=== PATIENT | female | born 1945 | race Caucasian/White ===

== ENCOUNTER 2018-01-01 22:52 | Emergency (ER) | payer MEDICARE, MEDICAID ==
[~2018-01-01] VITALS: Ht 157.5 cm; Wt 66.0 kg
[~2018-01-01 22:52] MED LIST: ATOR40TA PO; DIGO250T PO; FURO40TA6 PO; LEVO25TA4 PO; MECL12.52 PO; POTA10CA PO; SOTA120T26 PO; WARF5TAB PO
[2018-01-01] MEDS ORDERED: SODIUM CHLORIDE 0.9% 1,000ML IVBOLUS ONE (23:00)
[2018-01-01 23:27] LABS: BASOPHILS # (AUTO) 0.02 x10^3/uL (0-0.1); BASOPHILS % (AUTO) 0 % (0-1); EOSINOPHILS # (AUTO) 0.06 x10^3/uL (0-0.4); EOSINOPHILS % (AUTO) 1 % (1-7); LYMPHOCYTES # (AUTO) 1.02 x10^3/uL (1-3.4); LYMPHOCYTES % (AUTO) 22 % (22-44); MD NO; MEAN CORPUSCULAR HEMOGLOBIN 27.9 pg (27.0-34.8); MEAN CORPUSCULAR HGB CONC 32.8 g/dL (32.4-35.8); MEAN CORPUSCULAR VOLUME 85.1 fL (80-100); MEAN PLATELET VOLUME 7.9 fL (7.4-10.4); MONOCYTES % (AUTO) 9 % (2-9); NEUTROPHILS # (AUTO) 3.14 x10^3/uL (1.8-6.8); NEUTROPHILS % (AUTO) 68 % (42-75); PLATELET COUNT 190 x10^3/uL (130-400); RED BLOOD COUNT 4.07 x10^6/uL (3.82-5.3); RED CELL DISTRIBUTION WIDTH 15.4 % (9.6-15.2)
[2018-01-01] MEDS ORDERED: INSULIN REGULAR 100 UNITS/ML, 3ML VIAL SQ-INSULIN ONE (23:30)
[2018-01-01 23:33] LABS: ALBUMIN 3.6 g/dL (3.4-5.0); ANION GAP 3 mmol/L (5-15); CALCIUM 8.6 mg/dL (8.5-10.1); CHLORIDE 105 mmol/L (98-107); CREATININE 1.07 mg/dL (0.55-1.02)
[2018-01-01] MEDS ORDERED: INSULIN REGULAR 100 UNITS/ML, 3ML VIAL ONE (23:43)
[2018-01-02 00:05] LABS: INTERNATIONAL NORMALIZED RATIO 1.16 (0.93-1.1)
[2018-01-02] MEDS ORDERED: WARFARIN 10 MG TABLET PO-COUM STA (00:28)
[2018-01-02] MEDS ORDERED: ENOXAPARIN 60 MG/0.6 ML SQ ONE (00:30)
[2018-01-02] MEDS ORDERED: ENOXAPARIN 60 MG/0.6 ML ONE (00:39)
[2018-01-02 00:50] VITALS: BP 144/72
== END 2018-01-02 01:12 | disposition home or self-care (01) ==
LOC: ED 01-02 00:30
DX: E11.65 Type 2 diabetes mellitus with hyperglycemia (principal); E86.0 Dehydration; Z72.9 Problem related to lifestyle, unspecified; I48.91 Unspecified atrial fibrillation; Z79.01 Long term (current) use of anticoagulants; Z79.4 Long term (current) use of insulin; Z95.0 Presence of cardiac pacemaker; Z95.2 Presence of prosthetic heart valve
CPT/HCPCS: 36415; 80048; 82040; 82962; 85025; 85610; 93005; 96360; 96361; 96372; 99285; J1650; J7030

== ENCOUNTER 2018-04-05 09:33 | Inpatient (IN) | payer MEDICARE, MEDICAID ==
[~2018-04-05] VITALS: Ht 157.5 cm; Wt 67.3 kg
[2018-04-05] MEDS ORDERED: SODIUM CHLORIDE 0.9% 1,000ML IVBOLUS ONE (10:00)
[2018-04-05 10:09] LABS: BASOPHILS # (AUTO) 0.01 x10^3/uL (0-0.1); BASOPHILS % (AUTO) 0 % (0-1); EOSINOPHILS # (AUTO) 0.03 x10^3/uL (0-0.4); EOSINOPHILS % (AUTO) 1 % (1-7); LYMPHOCYTES # (AUTO) 0.98 x10^3/uL (1-3.4); LYMPHOCYTES % (AUTO) 26 % (22-44); MD NO; MEAN CORPUSCULAR HEMOGLOBIN 27.6 pg (27.0-34.8); MEAN CORPUSCULAR HGB CONC 32.7 g/dL (32.4-35.8); MEAN CORPUSCULAR VOLUME 84.4 fL (80-100); MEAN PLATELET VOLUME 7.7 fL (7.4-10.4); MONOCYTES # (AUTO) 0.23 x10^3/uL (0.2-0.8); MONOCYTES % (AUTO) 6 % (2-9); NEUTROPHILS % (AUTO) 68 % (42-75); PLATELET COUNT 217 x10^3/uL (130-400); RED BLOOD COUNT 4.65 x10^6/uL (3.82-5.3); RED CELL DISTRIBUTION WIDTH 15.2 % (9.6-15.2)
[2018-04-05 10:21] LABS: ALBUMIN 3.7 g/dL (3.4-5.0); ANION GAP 4 mmol/L (5-15); CALCIUM 8.7 mg/dL (8.5-10.1); CHLORIDE 98 mmol/L (98-107); CREATININE 1.09 mg/dL (0.55-1.02)
[2018-04-05 10:25] LABS: MICROSCOPIC NOT IND
[2018-04-05 10:35] LABS: CULTURE INDICATED? NO
[2018-04-05] MEDS ORDERED: ADENOSINE 6 MG/2 ML ONE (10:52)
[2018-04-05] MEDS ORDERED: VERAPAMIL 2.5 MG/ML, 2ML ONE (11:07)
[2018-04-05 11:30] LABS: ACETONE, SERUM Negative (Negative)
[2018-04-05] MEDS ORDERED: INSULIN REGULAR 100 UNITS/ML, 3ML VIAL IVPush ONE (11:30)
[2018-04-05] MEDS ORDERED: ADENOSINE 6 MG/2 ML IVPush ONE (11:30)
[2018-04-05] MEDS ORDERED: VERAPAMIL 2.5 MG/ML, 2ML IVPush ONE (11:30)
[2018-04-05] MEDS ORDERED: DEXTROSE 50%, 50ML SYRINGE IVPush PRN (12:30)
[2018-04-05] MEDS ORDERED: FUROSEMIDE 40 MG/4 ML IV SCH (12:30)
[2018-04-05] MEDS ORDERED: NITROGLYCERIN 0.4 MG BOTTLE (25 TABS) SL PRN (12:30)
[2018-04-05] MEDS ORDERED: GLUCAGON 1 MG IM PRN (12:30)
[2018-04-05] MEDS ORDERED: DEXTROSE 4 GM TAB.CHEW PO PRN (12:30)
[2018-04-05] MEDS ORDERED: ONDANSETRON 2MG/ML, 2ML IVPush PRN (12:30)
[2018-04-05 12:36] LABS: FREE T4 (FREE THYROXINE) 1.4 ng/dL (0.76-1.46)
[2018-04-05 12:39] VITALS: BP 110/73
[2018-04-05 12:51] LABS: HEMOGLOBIN A1C 14.6 % (4.2-6.3)
[2018-04-05 12:54] LABS: INTERNATIONAL NORMALIZED RATIO 1.08 (0.93-1.1); PROTHROMBIN TIME 11.1 Seconds (9.6-11.5)
[2018-04-05] MEDS ORDERED: INSULIN GLARGINE 100 UNITS/ML, PEN SQ-INSULIN ONE (13:00)
[2018-04-05] MEDS: INSULIN LISPRO 100 UNITS/ML, PEN SQ-INSULIN SCH ×3 (13:34→21:07)
[2018-04-05] MEDS ORDERED: ASPIRIN 325 MG TABLET PO ONE (14:30)
[2018-04-05 14:37] LABS: CHOL/HDL RATIO 3.2; LDL/HDL RATIO 1.6 (0.5-3.0)
[2018-04-05 17:42] VITALS: BP 126/75
[2018-04-05] MEDS: DILTIAZEM 30 MG TABLET PO SCH (17:49)
[2018-04-05] MEDS ORDERED: WARFARIN 3 MG TABLET PO-COUM SCH (18:00)
[2018-04-05 19:54] VITALS: BP 90/55
[2018-04-05] MEDS ORDERED: ACETAMINOPHEN 325 MG TABLET PO ONE (20:30)
[2018-04-05] MEDS ORDERED: SOTALOL 120MG TABLET PO SCH (21:00)
[2018-04-05] MEDS: DIGOXIN 0.25 MG TABLET PO SCH (21:06)
[2018-04-05] MEDS: SODIUM CHLORIDE FLUSH 10ML SYR IVF SCH (21:06)
[2018-04-05] MEDS: ATORVASTATIN 20 MG TABLET PO SCH (21:06)
[2018-04-05 21:09] VITALS: BP 97/65
[2018-04-06] VITALS (7 sets, daily range): BP systolic 90–137; BP diastolic 49–79
[2018-04-06] MEDS: DILTIAZEM 30 MG TABLET PO SCH ×2 (00:37→06:17)
[2018-04-06 01:12] LABS: BASOPHILS # (AUTO) 0.03 x10^3/uL (0-0.1); BASOPHILS % (AUTO) 1 % (0-1); EOSINOPHILS # (AUTO) 0.11 x10^3/uL (0-0.4); EOSINOPHILS % (AUTO) 2 % (1-7); LYMPHOCYTES # (AUTO) 2.63 x10^3/uL (1-3.4); LYMPHOCYTES % (AUTO) 40 % (22-44); MD NO; MEAN CORPUSCULAR HEMOGLOBIN 27.9 pg (27.0-34.8); MEAN CORPUSCULAR HGB CONC 32.9 g/dL (32.4-35.8); MEAN CORPUSCULAR VOLUME 84.7 fL (80-100); MEAN PLATELET VOLUME 7.5 fL (7.4-10.4); MONOCYTES # (AUTO) 0.42 x10^3/uL (0.2-0.8); MONOCYTES % (AUTO) 6 % (2-9); NEUTROPHILS # (AUTO) 3.38 x10^3/uL (1.8-6.8); NEUTROPHILS % (AUTO) 51 % (42-75); PLATELET COUNT 251 x10^3/uL (130-400); RED BLOOD COUNT 4.02 x10^6/uL (3.82-5.3); RED CELL DISTRIBUTION WIDTH 15.9 % (9.6-15.2)
[2018-04-06 01:16] LABS: ALANINE AMINOTRANSFERASE 91 U/L (12-78); ANION GAP 8 mmol/L (5-15); CALCIUM 8.4 mg/dL (8.5-10.1); CHLORIDE 111 mmol/L (98-107); CHOLESTEROL, TOTAL 121 mg/dL (140-239); CREATININE 0.96 mg/dL (0.55-1.02)
[2018-04-06 01:27] LABS: ALKALINE PHOSPHATASE 196 U/L (45-117); BILIRUBIN,TOTAL 0.3 mg/dL (0.2-1.0); CHOL/HDL RATIO 2.3; HDL CHOL % 43 % (28-40); HDL CHOLESTEROL (DIRECT) 52 mg/dL (40-60); LDL CHOLESTEROL,CALCULATED 58 mg/dL (54-169); LDL/HDL RATIO 1.1 (0.5-3.0); TOTAL PROTEIN 6.6 g/dL (6.4-8.2); TRIGLYCERIDES 53 mg/dL (50-200); VLDL CHOLESTEROL 11 mg/dL (0-25)
[2018-04-06] MEDS: LEVOTHYROXINE 25 MCG TABLET PO SCH (06:17)
[2018-04-06] MEDS ORDERED: SOTALOL 120MG TABLET PO SCH (09:00)
[2018-04-06] MEDS ORDERED: DILTIAZEM 120 MG CAP.ER.24H PO SCH (09:00)
[2018-04-06] MEDS ORDERED: INSULIN GLARGINE 100 UNITS/ML, PEN SQ-INSULIN SCH (09:00)
[2018-04-06 09:20] LABS: TROPONIN I < 0.015 ng/mL (0.000-0.045)
[2018-04-06 10:00] LABS: INTERNATIONAL NORMALIZED RATIO 1.11 (0.93-1.1); PROTHROMBIN TIME 11.4 Seconds (9.6-11.5)
[2018-04-06] MEDS: MECLIZINE 12.5 MG TABLET PO SCH (10:15)
[2018-04-06] MEDS: INSULIN LISPRO 100 UNITS/ML, PEN SQ-INSULIN SCH ×4 (10:15→21:23)
[2018-04-06] MEDS: FUROSEMIDE 20 MG TABLET PO SCH ×2 (10:15→16:56)
[2018-04-06] MEDS: SODIUM CHLORIDE FLUSH 10ML SYR IVF SCH ×2 (10:15→21:21)
[2018-04-06] MEDS: SOTALOL 120MG TABLET PO SCH ×2 (10:16→16:50)
[2018-04-06] MEDS ORDERED: POTASSIUM CHLORIDE 20 MEQ TAB.ER.PRT PO ONE (10:30)
[2018-04-06] MEDS: ENOXAPARIN 60 MG/0.6 ML SQ SCH (14:02)
[2018-04-06] MEDS ORDERED: FUROSEMIDE 20 MG TABLET PO SCH (17:00)
[2018-04-06] MEDS ORDERED: WARFARIN 7.5 MG TABLET PO-COUM ONE (18:00)
[2018-04-06] MEDS: DIGOXIN 0.25 MG TABLET PO SCH (21:21)
[2018-04-06] MEDS: ATORVASTATIN 20 MG TABLET PO SCH (21:21)
[2018-04-06] MEDS: INSULIN GLARGINE 100 UNITS/ML, PEN SQ-INSULIN SCH (21:23)
[2018-04-06] MEDS ORDERED: ACETAMINOPHEN 325 MG TABLET PO ONE (23:30)
[2018-04-07] MEDS: INSULIN GLARGINE 100 UNITS/ML, PEN SQ-INSULIN SCH (00:06)
[2018-04-07 01:58] VITALS: BP 107/72
[2018-04-07] MEDS: ENOXAPARIN 60 MG/0.6 ML SQ SCH ×2 (02:06→15:37)
[2018-04-07 05:33] LABS: INTERNATIONAL NORMALIZED RATIO 1.31 (0.93-1.1); PROTHROMBIN TIME 13.4 Seconds (9.6-11.5)
[2018-04-07 05:34] LABS: ALBUMIN 2.8 g/dL (3.4-5.0); ANION GAP 6 mmol/L (5-15); CALCIUM 8.2 mg/dL (8.5-10.1); CHLORIDE 108 mmol/L (98-107)
[2018-04-07 05:38] LABS: ALANINE AMINOTRANSFERASE 64 U/L (12-78); ALKALINE PHOSPHATASE 177 U/L (45-117); BILIRUBIN,TOTAL 0.4 mg/dL (0.2-1.0); CREATININE 0.91 mg/dL (0.55-1.02); TOTAL PROTEIN 6.2 g/dL (6.4-8.2)
[2018-04-07 05:55] VITALS: BP 103/71
[2018-04-07] MEDS: LEVOTHYROXINE 25 MCG TABLET PO SCH (06:05)
[2018-04-07] MEDS: SOTALOL 120MG TABLET PO SCH (06:05)
[2018-04-07 07:31] VITALS: BP 104/70
[2018-04-07 07:54] LABS: MEAN CORPUSCULAR HEMOGLOBIN 27.2 pg (27.0-34.8); MEAN CORPUSCULAR HGB CONC 32.1 g/dL (32.4-35.8); MEAN CORPUSCULAR VOLUME 84.8 fL (80-100); RED BLOOD COUNT 3.81 x10^6/uL (3.82-5.3); RED CELL DISTRIBUTION WIDTH 15.9 % (9.6-15.2)
[2018-04-07 08:57] LABS: MEAN PLATELET VOLUME 8.1 fL (7.4-10.4); PLATELET COUNT 180 x10^3/uL (130-400)
[2018-04-07 09:00] LABS: BASOPHILS # (AUTO) 0.01 x10^3/uL (0-0.1); BASOPHILS % (AUTO) 0 % (0-1); EOSINOPHILS # (AUTO) 0.03 x10^3/uL (0-0.4); EOSINOPHILS % (AUTO) 1 % (1-7); LYMPHOCYTES % (AUTO) 38 % (22-44); MD SCAN; MONOCYTES # (AUTO) 0.21 x10^3/uL (0.2-0.8); MONOCYTES % (AUTO) 7 % (2-9); NEUTROPHILS # (AUTO) 1.54 x10^3/uL (1.8-6.8); NEUTROPHILS % (AUTO) 53 % (42-75)
[2018-04-07] MEDS ORDERED: LISINOPRIL 5 MG TABLET PO SCH (09:00)
[2018-04-07] MEDS ORDERED: DILTIAZEM 90 MG CAP.ER.12H PO SCH (09:00)
[2018-04-07] MEDS: MECLIZINE 12.5 MG TABLET PO SCH (09:40)
[2018-04-07] MEDS: SODIUM CHLORIDE FLUSH 10ML SYR IVF SCH (09:40)
[2018-04-07] MEDS: FUROSEMIDE 20 MG TABLET PO SCH (09:40)
[2018-04-07] MEDS ORDERED: INSULIN LISPRO 100 UNITS/ML, PEN SQ-INSULIN SCH (11:00)
[2018-04-07] MEDS ORDERED: INSU100I13 SQ-INSULIN (14:28)
[2018-04-07] MEDS ORDERED: FURO20TA3 PO (14:28)
[2018-04-07] MEDS ORDERED: WARF7.5T PO-COUM (14:28)
[2018-04-07] MEDS ORDERED: ENOX60SY4 SQ (14:28)
[2018-04-07] MEDS ORDERED: SOTA120T14 PO (14:28)
[2018-04-07 15:32] VITALS: BP 127/76
[2018-04-07] MEDS ORDERED: WARFARIN 7.5 MG TABLET PO-COUM ONE (18:00)
== END 2018-04-07 16:20 | disposition home or self-care (01) | DRG 291 ==
LOC: ED 11:23 → EDIP 11:24 → ED 11:41 → 5SO 12:21
PROVIDERS: ADMIT Internal Medicine; ATTEND Internal Medicine
DX: I13.0 Hypertensive heart and chronic kidney disease with heart failure and stage 1 through stage 4 chronic kidney disease, or unspecified chronic kidney disease (principal); I50.43 Acute on chronic combined systolic (congestive) and diastolic (congestive) heart failure; I48.92 Unspecified atrial flutter; E87.1 Hypo-osmolality and hyponatremia; I47.1 Supraventricular tachycardia; D68.59 Other primary thrombophilia; I48.0 Paroxysmal atrial fibrillation; M70.72 Other bursitis of hip, left hip; M70.71 Other bursitis of hip, right hip; E11.22 Type 2 diabetes mellitus with diabetic chronic kidney disease; E03.9 Hypothyroidism, unspecified; E11.649 Type 2 diabetes mellitus with hypoglycemia without coma; I42.9 Cardiomyopathy, unspecified; K21.9 Gastro-esophageal reflux disease without esophagitis; N18.3 Chronic kidney disease, stage 3 (moderate); Z59.0 Homelessness; Z79.01 Long term (current) use of anticoagulants; Z79.4 Long term (current) use of insulin; Z86.73 Personal history of transient ischemic attack (TIA), and cerebral infarction without residual deficits; Z87.891 Personal history of nicotine dependence; Z90.710 Acquired absence of both cervix and uterus; Z91.14 Patient's other noncompliance with medication regimen; Z95.0 Presence of cardiac pacemaker; Z95.2 Presence of prosthetic heart valve; Z88.6 Allergy status to analgesic agent; Z88.0 Allergy status to penicillin
CPT/HCPCS: 36415; 71045; 80048; 80053; 80061; 80162; 81003; 82010; 82040; 82947; 82962; 83036; 83735; 83880; 84439; 84443; 84484; 85025; 85610; 85730; 93005; 93306; 96361; 96374; 96375; J0153; J1650; J1940; J1815; J7030

== ENCOUNTER 2018-07-08 09:03 | Emergency (ER) | payer MEDICARE, MEDICAID ==
[~2018-07-08] VITALS: Ht 157.5 cm; Wt 67.0 kg
[~2018-07-08 09:03] MED LIST changes: +ENOX60SY4 SQ; +FURO20TA3 PO; +INSU100I13 SQ-INSULIN; +SOTA120T14 PO; +WARF7.5T PO-COUM
[2018-07-08] MEDS ORDERED: SODIUM CHLORIDE 0.9% 1,000 ML IV ONE (09:25)
[2018-07-08] MEDS ORDERED: HYDROcodone/APAP 5/325 TABLET PO ONE (09:30)
[2018-07-08] MEDS ORDERED: SODIUM CHLORIDE 0.9% 1,000ML IVBOLUS ONE (09:30)
[2018-07-08 09:56] LABS: BASOPHILS # (AUTO) 0.01 x10^3/uL (0-0.1); BASOPHILS % (AUTO) 0 % (0-1); EOSINOPHILS # (AUTO) 0.02 x10^3/uL (0-0.4); EOSINOPHILS % (AUTO) 1 % (1-7); LYMPHOCYTES # (AUTO) 0.56 x10^3/uL (1-3.4); LYMPHOCYTES % (AUTO) 13 % (22-44); MD NO; MEAN CORPUSCULAR HEMOGLOBIN 28.3 pg (27.0-34.8); MEAN CORPUSCULAR HGB CONC 33.2 g/dL (32.4-35.8); MEAN CORPUSCULAR VOLUME 85.2 fL (80-100); MEAN PLATELET VOLUME 7.9 fL (7.4-10.4); MONOCYTES # (AUTO) 0.33 x10^3/uL (0.2-0.8); MONOCYTES % (AUTO) 8 % (2-9); NEUTROPHILS # (AUTO) 3.34 x10^3/uL (1.8-6.8); NEUTROPHILS % (AUTO) 78 % (42-75); PLATELET COUNT 160 x10^3/uL (130-400); RED BLOOD COUNT 4.36 x10^6/uL (3.82-5.3); RED CELL DISTRIBUTION WIDTH 15.1 % (9.6-15.2)
[2018-07-08 10:08] LABS: ALBUMIN 3.2 g/dL (3.4-5.0); ANION GAP 10 mmol/L (5-15); CALCIUM 8.2 mg/dL (8.5-10.1); CHLORIDE 99 mmol/L (98-107); CREATININE 0.92 mg/dL (0.55-1.02)
[2018-07-08 10:14] LABS: MICROSCOPIC NOT IND
[2018-07-08 10:15] LABS: CULTURE INDICATED? NO
[2018-07-08] MEDS ORDERED: HYDROcodone/APAP 5/325 TABLET ONE (10:40)
[2018-07-08] MEDS ORDERED: INSULIN REGULAR 100 UNITS/ML, 3ML VIAL IVPush ONE (11:00)
[2018-07-08] MEDS ORDERED: INSULIN REGULAR 100 UNITS/ML, 3ML VIAL ONE (11:40)
[2018-07-08] MEDS ORDERED: OMNIPAQUE 350 MG/ML, 100ML BOTTLE ONE (13:10)
[2018-07-08 13:45] VITALS: BP 102/59
== END 2018-07-08 13:47 | disposition home or self-care (01) ==
LOC: ED 12:13
DX: S39.012A Strain of muscle, fascia and tendon of lower back, initial encounter (principal); E11.65 Type 2 diabetes mellitus with hyperglycemia; I48.91 Unspecified atrial fibrillation; J44.9 Chronic obstructive pulmonary disease, unspecified; I10 Essential (primary) hypertension; M25.559 Pain in unspecified hip; G89.29 Other chronic pain; X58.XXXA Exposure to other specified factors, initial encounter; Y93.89 Activity, other specified; Y99.8 Other external cause status; Y92.89 Other specified places as the place of occurrence of the external cause
CPT/HCPCS: 36415; 71045; 74176; 74177; 80048; 81003; 82040; 82962; 83605; 84145; 85025; 93005; 96374; 99285; J7030; Q9967

== ENCOUNTER 2018-12-17 07:26 | Emergency (ER) | payer OTHER, MEDICAID ==
[~2018-12-17] VITALS: Ht 157.5 cm; Wt 65.0 kg
[2018-12-17 07:34] VITALS: BP 156/56
[2018-12-17] MEDS ORDERED: OXYcodone/APAP 5/325MG TABLET ONE (07:53)
[2018-12-17] MEDS ORDERED: OXYcodone/APAP 5/325MG TABLET PO ONE (08:00)
--- NOTE | 2018-12-17 10:04 | NUR ---
Discharge instructions discussed with patient, questions answered, verbalizes understanding. Prescription provided to patient with instruction for use. Patient ambulates with walker to discharge desk, dresses herself independently prior to discharge. Patient given taxi voucher upon discharge.
== END 2018-12-17 10:10 | disposition home or self-care (01) ==
LOC: ED 10:07
DX: E11.40 Type 2 diabetes mellitus with diabetic neuropathy, unspecified (principal); M19.90 Unspecified osteoarthritis, unspecified site; I10 Essential (primary) hypertension; J44.9 Chronic obstructive pulmonary disease, unspecified; Z72.9 Problem related to lifestyle, unspecified; Z90.710 Acquired absence of both cervix and uterus; Z95.0 Presence of cardiac pacemaker
CPT/HCPCS: 99283

== ENCOUNTER 2019-01-05 23:34 | Emergency (ER) | payer OTHER, MEDICAID ==
[~2019-01-05] VITALS: Ht 157.5 cm; Wt 64.0 kg
[2019-01-05 23:49] VITALS: BP 133/78
[2019-01-06] MEDS ORDERED: MECLIZINE CHEWABLE 25 MG TAB PO ONE
[2019-01-06 00:06] LABS: BASOPHILS # (AUTO) 0.01 x10^3/uL (0-0.1); BASOPHILS % (AUTO) 0 % (0-1); EOSINOPHILS # (AUTO) 0.06 x10^3/uL (0-0.4); EOSINOPHILS % (AUTO) 2 % (1-7); LYMPHOCYTES # (AUTO) 0.98 x10^3/uL (1-3.4); LYMPHOCYTES % (AUTO) 27 % (22-44); MD NO; MEAN CORPUSCULAR HEMOGLOBIN 27.6 pg (27.0-34.8); MEAN CORPUSCULAR HGB CONC 33.3 g/dL (32.4-35.8); MEAN CORPUSCULAR VOLUME 82.9 fL (80-100); MEAN PLATELET VOLUME 7.6 fL (7.4-10.4); MONOCYTES # (AUTO) 0.34 x10^3/uL (0.2-0.8); MONOCYTES % (AUTO) 9 % (2-9); NEUTROPHILS # (AUTO) 2.31 x10^3/uL (1.8-6.8); NEUTROPHILS % (AUTO) 62 % (42-75); PLATELET COUNT 180 x10^3/uL (130-400); RED CELL DISTRIBUTION WIDTH 15.3 % (9.6-15.2)
[2019-01-06] MEDS ORDERED: MECLIZINE CHEWABLE 25 MG TAB ONE (00:12)
[2019-01-06 00:17] LABS: ANION GAP 7 mmol/L (5-15); CALCIUM 8.7 mg/dL (8.5-10.1); CHLORIDE 106 mmol/L (98-107); CREATININE 0.98 mg/dL (0.55-1.02)
[2019-01-06 00:20] LABS: INTERNATIONAL NORMALIZED RATIO 6.48 (0.93-1.1); PROTHROMBIN TIME 63.3 Seconds (9.6-11.5)
--- NOTE | 2019-01-06 01:21 | NUR ---
REPORT FROM ZHAO ASSUMED CARE OF PT
--- NOTE | 2019-01-06 02:01 | NUR ---
PT AMBULATED WITH TECH WITHOUT DIFFICULTY PT IN NAD
[2019-01-06] MEDS ORDERED: PHYTONADIONE 5 MG TABLET PO ONE (02:30)
--- NOTE | 2019-01-06 02:39 | NUR ---
Patient/Caregiver given discharge instructions and they have confirmed that they understand the instructions. Patient ambulatory with steady gait.
== END 2019-01-06 02:42 | disposition home or self-care (01) ==
LOC: ED 01-06 00:13
DX: R51 Headache (principal); R42 Dizziness and giddiness; I48.91 Unspecified atrial fibrillation; I10 Essential (primary) hypertension; J44.9 Chronic obstructive pulmonary disease, unspecified; M54.9 Dorsalgia, unspecified; G89.29 Other chronic pain; Z72.9 Problem related to lifestyle, unspecified
CPT/HCPCS: 36415; 70450; 71045; 80048; 83735; 85025; 85610; 85730; 99284

== ENCOUNTER 2019-02-08 11:58 | Emergency (ER) | payer MEDICARE, MEDICAID ==
[~2019-02-08] VITALS: Ht 157.5 cm; Wt 67.2 kg
[2019-02-08] MEDS ORDERED: HYDROcodone/APAP 5/325 TABLET PO ONE (12:30)
[2019-02-08] MEDS ORDERED: ACETAMINOPHEN 500 MG TABLET ONE (12:46)
--- NOTE | 2019-02-08 12:55 | NUR ---
BEDSIDE REPORT FROM JHONY RN, PT HERE FOR FALL ON TAILBONE, MULT FALLS AND PREVIOUS TAIL BONE FX PER PT. PT ON MONITOR SLEEPING IN [facility]
[2019-02-08 13:11] VITALS: BP 119/64
[2019-02-08] MEDS ORDERED: ACETAMINOPHEN 500 MG TABLET PO ONE (13:30)
--- NOTE | 2019-02-08 13:56 | NUR ---
PT AMBULATED IN HALLWAY WITHOUT ASSITANCE, SHUFFLING GAIT WITH DWIGHT, PT STATES THIS IS HER BASELINE, BACK TO BED WITHOUT ASSISTANCE.
== END 2019-02-08 14:46 | disposition home or self-care (01) ==
LOC: ED 13:22
DX: S30.0XXA Contusion of lower back and pelvis, initial encounter (principal); I10 Essential (primary) hypertension; J44.9 Chronic obstructive pulmonary disease, unspecified; G89.29 Other chronic pain; I48.91 Unspecified atrial fibrillation; E11.65 Type 2 diabetes mellitus with hyperglycemia; Z90.710 Acquired absence of both cervix and uterus; Z95.0 Presence of cardiac pacemaker; Z95.4 Presence of other heart-valve replacement; M19.90 Unspecified osteoarthritis, unspecified site; W01.198A Fall on same level from slipping, tripping and stumbling with subsequent striking against other object, initial encounter; Y93.89 Activity, other specified; Y92.009 Unspecified place in unspecified non-institutional (private) residence as the place of occurrence of the external cause; Y99.8 Other external cause status
CPT/HCPCS: 72220; 99283

== ENCOUNTER → 2019-09-10 | Outpatient (CLI) | payer MEDICARE, MEDICAID | END | disposition home or self-care (01) | LOC: CFH 09:21 | PROVIDERS: ATTEND Internal Medicine Cardiovascular Disease | DX: I08.8 Other rheumatic multiple valve diseases (principal); I10 Essential (primary) hypertension; I48.0 Paroxysmal atrial fibrillation; Z95.2 Presence of prosthetic heart valve | CPT/HCPCS: 93306 ==

== ENCOUNTER → 2019-09-19 | Outpatient (CLI) | payer MEDICARE, MEDICAID ==
[2019-09-19 16:01] LABS: BASOPHILS % (AUTO) 0 % (0-1); EOSINOPHILS # (AUTO) 0.04 x10^3/uL (0-0.4); EOSINOPHILS % (AUTO) 1 % (1-7); LYMPHOCYTES # (AUTO) 0.74 x10^3/uL (1-3.4); LYMPHOCYTES % (AUTO) 21 % (22-44); MD NO; MEAN CORPUSCULAR HEMOGLOBIN 27.1 pg (27.0-34.8); MEAN CORPUSCULAR HGB CONC 31.6 g/dL (32.4-35.8); MEAN CORPUSCULAR VOLUME 85.8 fL (80-100); MEAN PLATELET VOLUME 8.6 fL (7.4-10.4); MONOCYTES # (AUTO) 0.21 x10^3/uL (0.2-0.8); MONOCYTES % (AUTO) 6 % (2-9); NEUTROPHILS # (AUTO) 2.63 x10^3/uL (1.8-6.8); NEUTROPHILS % (AUTO) 73 % (42-75); PLATELET COUNT 155 x10^3/uL (130-400); RED CELL DISTRIBUTION WIDTH 15.4 % (9.6-15.2)
[2019-09-19 16:12] LABS: ALBUMIN 3.9 g/dL (3.4-5.0); ANION GAP 5 mmol/L (5-15); CALCIUM 8.8 mg/dL (8.5-10.1); CHLORIDE 108 mmol/L (98-107)
[2019-09-19 16:13] LABS: INTERNATIONAL NORMALIZED RATIO 1.44 (0.93-1.1); PROTHROMBIN TIME 14.9 Seconds (9.6-11.5)
[2019-09-19 16:16] LABS: ALANINE AMINOTRANSFERASE 32 U/L (12-78); ALKALINE PHOSPHATASE 152 U/L (45-117); BILIRUBIN,TOTAL 0.6 mg/dL (0.2-1.0); CHOL/HDL RATIO 2.5; CHOLESTEROL, TOTAL 121 mg/dL (140-239); HDL CHOL % 40 % (28-40); HDL CHOLESTEROL (DIRECT) 49 mg/dL (40-60); LDL CHOLESTEROL,CALCULATED 64 mg/dL (54-169); LDL/HDL RATIO 1.3 (0.5-3.0); TOTAL PROTEIN 7.9 g/dL (6.4-8.2); TRIGLYCERIDES 40 mg/dL (50-200); VLDL CHOLESTEROL 8 mg/dL (0-25)
== END | disposition home or self-care (01) ==
LOC: CFH 11:49
PROVIDERS: ATTEND Family Medicine
DX: E11.9 Type 2 diabetes mellitus without complications (principal); E78.5 Hyperlipidemia, unspecified; I10 Essential (primary) hypertension; I48.0 Paroxysmal atrial fibrillation; Z79.01 Long term (current) use of anticoagulants
CPT/HCPCS: 36415; 80053; 80061; 80162; 85025; 85610

== ENCOUNTER 2019-10-18 22:52 | Observation (INO) | payer MEDICARE, MEDICAID ==
[~2019-10-18] VITALS: Ht 157.5 cm; Wt 75.4 kg
[~2019-10-18 22:52] MED LIST changes: -DIGO250T PO; +DIGO250T3 PO; -MECL12.52 PO; +MECL12.581 PO
--- NOTE | 2019-10-18 23:05 | NUR ---
BIBA FROM HOME. C/O PALPITATIONSX HOURS. HX AFIB/PACEMAKER. AFIB 70S. C/O SOB. DENIES CP. ON WARFARIN. "BUMPED HEAD" 2 DAYS AGO, HASNOT FELT RIGHT SINCE. WASNT SEEN. ERMD IN ROOM. PLAN FOR HEAD CT/PROBABLY ADMIT. LABS. PIV BY EMS. CALL ESCAMILLA IN REACH.
[2019-10-18] MEDS ORDERED: SODIUM CHLORIDE 0.9% 1,000ML IVBOLUS ONE (23:30)
[2019-10-18] MEDS ORDERED: SODIUM CHLORIDE FLUSH 10ML SYR IVF ONE (23:30)
[2019-10-18 23:35] LABS: BASOPHILS # (AUTO) 0.01 x10^3/uL (0-0.1); BASOPHILS % (AUTO) 0 % (0-1); EOSINOPHILS # (AUTO) 0.06 x10^3/uL (0-0.4); EOSINOPHILS % (AUTO) 2 % (1-7); LYMPHOCYTES # (AUTO) 0.89 x10^3/uL (1-3.4); LYMPHOCYTES % (AUTO) 26 % (22-44); MD NO; MEAN CORPUSCULAR HEMOGLOBIN 27.8 pg (27.0-34.8); MEAN CORPUSCULAR HGB CONC 32.7 g/dL (32.4-35.8); MEAN CORPUSCULAR VOLUME 84.9 fL (80-100); MEAN PLATELET VOLUME 7.6 fL (7.4-10.4); MONOCYTES # (AUTO) 0.35 x10^3/uL (0.2-0.8); MONOCYTES % (AUTO) 10 % (2-9); NEUTROPHILS # (AUTO) 2.11 x10^3/uL (1.8-6.8); NEUTROPHILS % (AUTO) 62 % (42-75); PLATELET COUNT 180 x10^3/uL (130-400); RED BLOOD COUNT 3.95 x10^6/uL (3.82-5.3)
[2019-10-18 23:37] LABS: ALANINE AMINOTRANSFERASE 32 U/L (12-78); ALBUMIN 3.7 g/dL (3.4-5.0); ANION GAP 5 mmol/L (5-15); CALCIUM 8.8 mg/dL (8.5-10.1); CHLORIDE 106 mmol/L (98-107); T4 (THYROXINE) 11.4 mcg/dL (4.8-13.9)
--- NOTE | 2019-10-18 23:39 | NUR ---
BACK FROM CT. C/O 07/24 GENERALIZED BODY PAIN AND BACK PAIN. REPOSTIONED. VSS. AFIB 80S.
[2019-10-18 23:41] LABS: ALKALINE PHOSPHATASE 129 U/L (45-117); BILIRUBIN,TOTAL 0.8 mg/dL (0.2-1.0); TOTAL PROTEIN 7.7 g/dL (6.4-8.2); TROPONIN I < 0.015 ng/mL (0.000-0.045)
[2019-10-18 23:46] LABS: INTERNATIONAL NORMALIZED RATIO 1.05 (0.93-1.1)
--- NOTE | 2019-10-19 00:12 | NUR ---
Report from Bev BOWLING. Pt resting in bed, positioned for comfort with Ruchi Paw warmer. Pt denies other needs at this time.
--- NOTE | 2019-10-19 00:13 | NUR ---
bedside report to etienne santos. as
[2019-10-19 00:17] LABS: MICROSCOPIC AUTO
--- NOTE | 2019-10-19 00:50 | NUR ---
Hospital bed requested for pt.
--- NOTE | 2019-10-19 01:11 | NUR ---
Pt continues resting in bed, NADN. Pt provided socks per request, denies other needs. [facility] MD at bedside to evaluate pt.
[2019-10-19] MEDS ORDERED: GLUCAGON 1 MG IM PRN (02:00)
[2019-10-19] MEDS ORDERED: DEXTROSE 4 GM TAB.CHEW PO PRN (02:00)
[2019-10-19] MEDS ORDERED: DOCUSATE 100 MG CAPSULE PO PRN (02:00)
[2019-10-19] MEDS ORDERED: hydrALAzine 20 MG/ML, 1ML IVPush PRN (02:00)
[2019-10-19] MEDS ORDERED: LABETALOL 5MG/ML, 20ML IVPush PRN (02:00)
[2019-10-19] MEDS ORDERED: DEXTROSE 50%, 50ML SYRINGE IVPush PRN (02:00)
--- NOTE | 2019-10-19 02:04 | NUR ---
Pt assisted to bedside commode with SBA to void. Pt assisted back to hospital bed and positioned for comfort. Pt denies other needs.
[2019-10-19] MEDS ORDERED: NS + 20MEQ KCL 1,000 ML IV ONE (02:25)
[2019-10-19] MEDS: NS + 20MEQ KCL 1,000 ML IV SCH ×2 (02:34→15:35)
--- NOTE | 2019-10-19 03:02 | NUR ---
Pt resting in bed with eyes closed, resp even and unlabored, NADN.
--- NOTE | 2019-10-19 04:04 | NUR ---
Pt repositioned on her R side for comfort, denies other needs.
--- NOTE | 2019-10-19 05:12 | NUR ---
Pt resting in bed with eyes closed, resp even and unlabored, NADN.
[2019-10-19 05:41] LABS: MEAN CORPUSCULAR VOLUME 84.8 fL (80-100); PLATELET COUNT 153 x10^3/uL (130-400); RED BLOOD COUNT 3.43 x10^6/uL (3.82-5.3); RED CELL DISTRIBUTION WIDTH 15.7 % (9.6-15.2)
--- NOTE | 2019-10-19 05:53 | NUR ---
Pt continues resting in bed with eyes closed, resp even and unlabored, NADN.
[2019-10-19 05:55] LABS: CHOL/HDL RATIO 2.8; LDL/HDL RATIO 1.5 (0.5-3.0)
[2019-10-19 06:12] LABS: BASOPHILS # (AUTO) 0.01 x10^3/uL (0-0.1); BASOPHILS % (AUTO) 0 % (0-1); EOSINOPHILS # (AUTO) 0.04 x10^3/uL (0-0.4); EOSINOPHILS % (AUTO) 1 % (1-7); LYMPHOCYTES # (AUTO) 0.87 x10^3/uL (1-3.4); LYMPHOCYTES % (AUTO) 33 % (22-44); MD SCAN; MONOCYTES # (AUTO) 0.28 x10^3/uL (0.2-0.8); MONOCYTES % (AUTO) 11 % (2-9); NEUTROPHILS # (AUTO) 1.48 x10^3/uL (1.8-6.8); NEUTROPHILS % (AUTO) 55 % (42-75)
--- NOTE | 2019-10-19 06:21 | NUR ---
Breakfast tray ordered for pt.
[2019-10-19] MEDS ORDERED: OMEPRAZOLE 20 MG CAPSULE.DR ONE (06:51)
[2019-10-19] MEDS: INSULIN LISPRO 100 UNITS/ML, PEN SQ-INSULIN SCH ×4 (06:57→20:08)
[2019-10-19] MEDS: OMEPRAZOLE 20 MG CAPSULE.DR PO SCH ×2 (06:57→08:07)
[2019-10-19] MEDS ORDERED: ENOXAPARIN 40 MG/0.4 ML SQ SCH (07:00)
[2019-10-19] MEDS ORDERED: ENOXAPARIN 40 MG/0.4 ML ONE (07:00)
--- NOTE | 2019-10-19 07:03 | NUR ---
REPORT FROM JELLY BOWLING. PT RESTING IN BED. CALL LIGHT IN REACH. MEDICATIONS REQUESTED FROM PHARMACY
[2019-10-19] MEDS ORDERED: AMLODIPINE 5 MG TABLET ONE (08:03)
[2019-10-19] MEDS ORDERED: FUROSEMIDE 20 MG TABLET ONE (08:03)
[2019-10-19] MEDS: FUROSEMIDE 20 MG TABLET PO SCH ×2 (08:07→16:51)
[2019-10-19] MEDS: AMLODIPINE 5 MG TABLET PO SCH (08:08)
[2019-10-19] MEDS: SOTALOL 120MG TABLET PO SCH ×2 (08:36→18:16)
[2019-10-19] MEDS: SODIUM CHLORIDE FLUSH 10ML SYR IVF SCH ×2 (08:37→21:29)
--- NOTE | 2019-10-19 08:37 | NUR ---
MEAL TRAY PROVIDED.
[2019-10-19] MEDS ORDERED: TEMPLATE NON-FORMULARY MED. (Potassium Chloride** 10 MEQ) PO SCH (09:00)
[2019-10-19] MEDS: MECLIZINE 12.5 MG TABLET PO SCH (09:27)
[2019-10-19] MEDS: LEVOTHYROXINE 25 MCG TABLET PO SCH (09:27)
[2019-10-19] MEDS ORDERED: ENOXAPARIN 30 MG/0.3 ML SQ ONE (10:00)
--- NOTE | 2019-10-19 10:36 | NUR ---
spoke with wily regardning inerrogation. will send fax but states no signs of anyhing abnormal had a 2 secon episode yesterday with 2 pac's/ pt a paced and v paced. nohing else to note.
--- NOTE | 2019-10-19 11:49 | NUR ---
MEDS REQUESTED FROM PHARMACY. MEAL TRAY PROVIDED.
--- NOTE | 2019-10-19 12:49 | NUR ---
REPORT CALLED TO RICH BOWLING.
[2019-10-19 14:20] VITALS: BP 118/76
[2019-10-19] MEDS ORDERED: ENOXAPARIN 30 MG/0.3 ML ONE (15:25)
[2019-10-19] MEDS: ACETAMINOPHEN 325 MG TABLET PO PRN (16:52)
[2019-10-19] MEDS ORDERED: WARFARIN 10 MG TABLET PO-COUM ONE (18:00)
[2019-10-19] MEDS: ENOXAPARIN 80 MG/0.8 ML SQ SCH (18:17)
[2019-10-19 19:45] VITALS: BP 137/81
[2019-10-19] MEDS ORDERED: ENOXAPARIN 60 MG/0.6 ML SQ SCH (20:00)
[2019-10-19] MEDS: ATORVASTATIN 20 MG TABLET PO SCH (21:27)
[2019-10-19] MEDS: DIGOXIN 0.125 MG TABLET PO SCH (21:28)
[2019-10-19] MEDS: INSULIN GLARGINE 100 UNITS/ML, PEN SQ-INSULIN SCH (21:28)
[2019-10-20 02:57] VITALS: BP 146/79
[2019-10-20] MEDS: NS + 20MEQ KCL 1,000 ML IV SCH (03:00)
[2019-10-20 05:33] LABS: MEAN CORPUSCULAR HEMOGLOBIN 28.1 pg (27.0-34.8); MEAN CORPUSCULAR VOLUME 85.2 fL (80-100); MEAN PLATELET VOLUME 7.9 fL (7.4-10.4); PLATELET COUNT 144 x10^3/uL (130-400); RED BLOOD COUNT 3.52 x10^6/uL (3.82-5.3); RED CELL DISTRIBUTION WIDTH 15.7 % (9.6-15.2)
[2019-10-20] MEDS: SOTALOL 120MG TABLET PO SCH ×2 (05:42→17:19)
[2019-10-20] MEDS: ENOXAPARIN 80 MG/0.8 ML SQ SCH ×2 (05:43→17:17)
[2019-10-20 05:44] LABS: ANION GAP 5 mmol/L (5-15); CALCIUM 7.9 mg/dL (8.5-10.1); CHLORIDE 111 mmol/L (98-107)
[2019-10-20 05:45] LABS: CREATININE 0.69 mg/dL (0.55-1.02)
[2019-10-20 06:18] LABS: BASOPHILS # (AUTO) 0.01 x10^3/uL (0-0.1); BASOPHILS % (AUTO) 0 % (0-1); EOSINOPHILS # (AUTO) 0.05 x10^3/uL (0-0.4); EOSINOPHILS % (AUTO) 2 % (1-7); LYMPHOCYTES # (AUTO) 0.88 x10^3/uL (1-3.4); LYMPHOCYTES % (AUTO) 35 % (22-44); MD SCAN; MONOCYTES # (AUTO) 0.27 x10^3/uL (0.2-0.8); MONOCYTES % (AUTO) 10 % (2-9); NEUTROPHILS # (AUTO) 1.34 x10^3/uL (1.8-6.8); NEUTROPHILS % (AUTO) 53 % (42-75)
[2019-10-20 06:57] VITALS: BP 126/79
[2019-10-20] MEDS: INSULIN LISPRO 100 UNITS/ML, PEN SQ-INSULIN SCH ×4 (07:00→21:29)
[2019-10-20 07:59] LABS: INTERNATIONAL NORMALIZED RATIO 1.14 (0.93-1.1); PROTHROMBIN TIME 11.9 Seconds (9.6-11.5)
[2019-10-20] MEDS: LEVOTHYROXINE 25 MCG TABLET PO SCH (08:32)
[2019-10-20] MEDS: MECLIZINE 12.5 MG TABLET PO SCH (08:33)
[2019-10-20] MEDS: SODIUM CHLORIDE FLUSH 10ML SYR IVF SCH ×2 (08:33→21:00)
[2019-10-20] MEDS: FUROSEMIDE 20 MG TABLET PO SCH ×2 (08:33→17:21)
[2019-10-20] MEDS: POTASSIUM CHLORIDE 10 MEQ TABLET.ER PO SCH (08:33)
[2019-10-20] MEDS: AMLODIPINE 5 MG TABLET PO SCH (08:33)
[2019-10-20] MEDS: ACETAMINOPHEN 325 MG TABLET PO PRN ×2 (10:35→21:28)
[2019-10-20 14:56] VITALS: BP 123/77
[2019-10-20] MEDS ORDERED: WARFARIN 10 MG TABLET PO-COUM ONE (18:00)
[2019-10-20 18:50] VITALS: BP 128/75
[2019-10-20] MEDS: ATORVASTATIN 20 MG TABLET PO SCH (21:28)
[2019-10-20] MEDS: DIGOXIN 0.125 MG TABLET PO SCH (21:28)
[2019-10-20] MEDS: INSULIN GLARGINE 100 UNITS/ML, PEN SQ-INSULIN SCH (21:30)
[2019-10-21 01:38] VITALS: BP 144/83
[2019-10-21] MEDS: OMEPRAZOLE 20 MG CAPSULE.DR PO SCH (05:57)
[2019-10-21 06:23] VITALS: BP 145/89
[2019-10-21] MEDS: ENOXAPARIN 80 MG/0.8 ML SQ SCH ×2 (06:26→17:35)
[2019-10-21] MEDS: SOTALOL 120MG TABLET PO SCH ×2 (06:26→17:34)
[2019-10-21 06:43] LABS: INTERNATIONAL NORMALIZED RATIO 1.72 (0.93-1.1); PROTHROMBIN TIME 17.7 Seconds (9.6-11.5)
[2019-10-21] MEDS: INSULIN LISPRO 100 UNITS/ML, PEN SQ-INSULIN SCH ×4 (07:00→19:49)
[2019-10-21 07:45] VITALS: BP 133/83
[2019-10-21] MEDS: FUROSEMIDE 20 MG TABLET PO SCH ×3 (08:49→17:34)
[2019-10-21] MEDS: POTASSIUM CHLORIDE 10 MEQ TABLET.ER PO SCH (08:53)
[2019-10-21] MEDS: SODIUM CHLORIDE FLUSH 10ML SYR IVF SCH ×2 (08:54→20:00)
[2019-10-21] MEDS: MECLIZINE 12.5 MG TABLET PO SCH (08:54)
[2019-10-21] MEDS: LEVOTHYROXINE 25 MCG TABLET PO SCH (08:54)
[2019-10-21] MEDS: AMLODIPINE 5 MG TABLET PO SCH (11:39)
[2019-10-21 13:20] VITALS: BP 116/73
[2019-10-21] MEDS: ACETAMINOPHEN 325 MG TABLET PO PRN (17:42)
[2019-10-21] MEDS ORDERED: WARFARIN 7.5 MG TABLET PO-COUM ONE (18:00)
[2019-10-21 18:53] VITALS: BP 91/62
[2019-10-21] MEDS: DIGOXIN 0.125 MG TABLET PO SCH (19:59)
[2019-10-21] MEDS: ATORVASTATIN 20 MG TABLET PO SCH (19:59)
[2019-10-21] MEDS: INSULIN GLARGINE 100 UNITS/ML, PEN SQ-INSULIN SCH (20:00)
[2019-10-21 23:53] VITALS: BP 102/68
[2019-10-22] MEDS: ENOXAPARIN 80 MG/0.8 ML SQ SCH (05:20)
[2019-10-22] MEDS: OMEPRAZOLE 20 MG CAPSULE.DR PO SCH (05:20)
[2019-10-22] MEDS: SOTALOL 120MG TABLET PO SCH (05:20)
[2019-10-22 05:33] LABS: INTERNATIONAL NORMALIZED RATIO 2.78 (0.93-1.1); PROTHROMBIN TIME 28.1 Seconds (9.6-11.5)
[2019-10-22] MEDS: INSULIN LISPRO 100 UNITS/ML, PEN SQ-INSULIN SCH ×2 (07:00→11:00)
[2019-10-22 07:08] VITALS: BP 109/69
[2019-10-22] MEDS: AMLODIPINE 5 MG TABLET PO SCH (08:35)
[2019-10-22] MEDS: POTASSIUM CHLORIDE 10 MEQ TABLET.ER PO SCH (08:35)
[2019-10-22] MEDS: LEVOTHYROXINE 25 MCG TABLET PO SCH (08:35)
[2019-10-22] MEDS: FUROSEMIDE 20 MG TABLET PO SCH (08:35)
[2019-10-22] MEDS: MECLIZINE 12.5 MG TABLET PO SCH (08:35)
[2019-10-22] MEDS: SODIUM CHLORIDE FLUSH 10ML SYR IVF SCH (08:36)
== END 2019-10-22 13:15 | disposition home health service (06) ==
LOC: ED 10-19 00:37 → EDIP 10-19 01:17 → INTOOBSV 10-19 01:17 → 4WST 10-19 13:25 → DCLOUNGE 10-22 12:41
PROVIDERS: ADMIT Family Medicine; ATTEND Family Medicine
PROC: 4B02XSZ Measurement of Cardiac Pacemaker, External Approach (ICD-10-PCS; principal; 2019-10-19)
DX: R42 Dizziness and giddiness (principal); I42.9 Cardiomyopathy, unspecified; I48.20 Chronic atrial fibrillation, unspecified; E78.5 Hyperlipidemia, unspecified; I07.1 Rheumatic tricuspid insufficiency; K46.9 Unspecified abdominal hernia without obstruction or gangrene; I11.0 Hypertensive heart disease with heart failure; E03.9 Hypothyroidism, unspecified; E11.42 Type 2 diabetes mellitus with diabetic polyneuropathy; R79.1 Abnormal coagulation profile; E86.0 Dehydration; Z79.01 Long term (current) use of anticoagulants; J44.9 Chronic obstructive pulmonary disease, unspecified; Z79.4 Long term (current) use of insulin; Z85.41 Personal history of malignant neoplasm of cervix uteri; Z86.73 Personal history of transient ischemic attack (TIA), and cerebral infarction without residual deficits; Z90.710 Acquired absence of both cervix and uterus
CPT/HCPCS: 36415; 70450; 71045; 78452; 80048; 80053; 80061; 80162; 81001; 82140; 82962; 83036; 83735; 83880; 84436; 84443; 84484; 85025; 85610; 85730; 87086; 93005; 93017; 96360; 96361; 96372; 97162; 97165; 99285; A9502; G0378; J1650; J1815; J3480; J7030

== ENCOUNTER → 2019-10-24 | Outpatient (CLI) | payer MEDICARE, MEDICAID ==
[~2019-10-24] MED LIST changes: +DIGO250T PO; -DIGO250T3 PO; +MECL12.52 PO; -MECL12.581 PO
[2019-10-24 16:25] LABS: INTERNATIONAL NORMALIZED RATIO 2.76 (0.93-1.1); PROTHROMBIN TIME 27.9 Seconds (9.6-11.5)
== END | disposition home or self-care (01) ==
LOC: CFH 13:25
PROVIDERS: ATTEND Internal Medicine Cardiovascular Disease
DX: I48.0 Paroxysmal atrial fibrillation (principal); Z79.01 Long term (current) use of anticoagulants
CPT/HCPCS: 36415; 85610

== ENCOUNTER 2020-01-06 22:32 | Emergency (ER) | payer MEDICARE, MEDICAID ==
[~2020-01-06] VITALS: Ht 157.5 cm; Wt 68.1 kg
[~2020-01-06 22:32] MED LIST changes: -DIGO250T PO; +DIGO250T3 PO; -MECL12.52 PO; +MECL12.581 PO
--- NOTE | 2020-01-06 22:37 | NUR ---
Pt BIB [facility] d/t high blood sugar (500's). Pt reports she didn't take any meds for high BS. Per EMS, BS 418. Pt is alert and oriented. NAD. Pt reports feeling "short winded". No increased WOB noted. Pt in gown nd on pulse ox/HR monitor. Call light within reach. Addendum: 01/06/20 at 2242 by [employer] Pt also reports headache and feeling dizzy.
--- NOTE | 2020-01-06 22:42 | NUR ---
Pt received 250ml of NS from [facility]
--- NOTE | 2020-01-06 22:42 | NUR ---
Pt to CT.
[2020-01-06] MEDS ORDERED: ACETAMINOPHEN 325 MG TABLET PO ONE (23:00)
[2020-01-06] MEDS ORDERED: ACETAMINOPHEN 325 MG TABLET ONE (23:04)
--- NOTE | 2020-01-06 23:09 | NUR ---
Pt returned from scan. Pt given tylenol. Pt on full monitors. Call light within reach.
--- NOTE | 2020-01-06 23:10 | NUR ---
Lab at bedside for draw.
[2020-01-06 23:22] LABS: PH, VENOUS 7.329 pH (7.320-7.420)
[2020-01-06 23:23] LABS: BASOPHILS # (AUTO) 0.01 x10^3/uL (0-0.1); BASOPHILS % (AUTO) 0 % (0-1); EOSINOPHILS # (AUTO) 0.06 x10^3/uL (0-0.4); EOSINOPHILS % (AUTO) 1 % (1-7); LYMPHOCYTES # (AUTO) 0.97 x10^3/uL (1-3.4); LYMPHOCYTES % (AUTO) 23 % (22-44); MD NO; MEAN CORPUSCULAR HEMOGLOBIN 27.6 pg (27.0-34.8); MEAN CORPUSCULAR HGB CONC 31.8 g/dL (32.4-35.8); MEAN CORPUSCULAR VOLUME 86.7 fL (80-100); MEAN PLATELET VOLUME 7.6 fL (7.4-10.4); MONOCYTES # (AUTO) 0.32 x10^3/uL (0.2-0.8); MONOCYTES % (AUTO) 8 % (2-9); NEUTROPHILS # (AUTO) 2.83 x10^3/uL (1.8-6.8); NEUTROPHILS % (AUTO) 68 % (42-75); PLATELET COUNT 182 x10^3/uL (130-400); RED BLOOD COUNT 3.84 x10^6/uL (3.82-5.3); RED CELL DISTRIBUTION WIDTH 16.4 % (9.6-15.2)
[2020-01-06 23:34] LABS: INTERNATIONAL NORMALIZED RATIO 1.61 (0.93-1.1); PROTHROMBIN TIME 17.2 Seconds (9.6-11.5)
[2020-01-06 23:36] LABS: ALANINE AMINOTRANSFERASE 52 U/L (12-78); ALBUMIN 3.8 g/dL (3.4-5.0); ANION GAP 6 mmol/L (5-15); CALCIUM 8.7 mg/dL (8.5-10.1); CHLORIDE 108 mmol/L (98-107)
[2020-01-06 23:38] LABS: ALKALINE PHOSPHATASE 195 U/L (45-117); BILIRUBIN,TOTAL 0.4 mg/dL (0.2-1.0); TOTAL PROTEIN 7.5 g/dL (6.4-8.2)
[2020-01-06] MEDS ORDERED: PLEASE ENTER HEIGHT AND WEIGHT MC SCH (23:45)
[2020-01-06] MEDS ORDERED: INSULIN LISPRO 100 UNIT/ML, 3ML VIAL SQ-INSULIN STA (23:51)
[2020-01-07] MEDS ORDERED: INSULIN LISPRO SINGLE DOSE, ER SQ-INSULIN ONE (00:17)
[2020-01-07 00:21] VITALS: BP 137/86
--- NOTE | 2020-01-07 00:22 | NUR ---
Insulin verified with DASH Garnett Addendum: 01/07/20 at 0024 by MRICH for BS of [id number]
--- NOTE | 2020-01-07 00:36 | NUR ---
Pt ambulatory to restroom with walker. Pt reports improvement after tylenol admin.
--- NOTE | 2020-01-07 00:46 | NUR ---
Pt d/c'd to home care. Pt alert, oriented, and in NAD. Pt educated on prescription, OTC meds, follow-up, home care, and S/Sx to return. Pt VU. Pt ambulated out of ER with walker. Taxi voucher given.
== END 2020-01-07 00:48 | disposition home or self-care (01) ==
LOC: ED 23:47
DX: E11.65 Type 2 diabetes mellitus with hyperglycemia (principal); R51 Headache; Z76.0 Encounter for issue of repeat prescription; G89.29 Other chronic pain; M19.90 Unspecified osteoarthritis, unspecified site; J44.9 Chronic obstructive pulmonary disease, unspecified; I10 Essential (primary) hypertension; I48.91 Unspecified atrial fibrillation; Z90.710 Acquired absence of both cervix and uterus; Z95.0 Presence of cardiac pacemaker
CPT/HCPCS: 36415; 70450; 80053; 82803; 85025; 85610; 85730; 96372; 99284

== ENCOUNTER 2020-01-13 16:03 | Emergency (ER) | payer MEDICARE, MEDICAID ==
--- NOTE | 2020-01-13 16:30 | NUR ---
POWER PA TO TRIAGE TO DISCUSS POC WITH PT AND CONCERNING S/S. PT VERBALIZES UNDERSTANDING AND REQUEST TO LEAVE AT THIS TIME
== END 2020-01-13 16:34 | disposition home or self-care (01) ==
LOC: ED 16:15
DX: Z13.1 Encounter for screening for diabetes mellitus (principal); E11.9 Type 2 diabetes mellitus without complications
CPT/HCPCS: 99281

== ENCOUNTER 2020-01-19 08:07 | Observation (INO) | payer MEDICARE, MEDICAID ==
[~2020-01-19] VITALS: Ht 157.5 cm; Wt 63.7 kg
[2020-01-19] MEDS ORDERED: [UNRECOGNIZED DRUG - REMARK] (08:32)
--- NOTE | 2020-01-19 08:37 | NUR ---
PT TO ED FOR DIZZINESS AND "BLACKING OUT" THIS AM. PT ATTRIBUTES THIS TO FLUCTUATING FSBG. PT STATES SHE TOOK DSBG AT 120 AND 113 AFTER EPISODE, THEN ATE A PIECE OF CHOCOLATE AND IT RAISED TO 170, SO PT TOOK "SOME" INSULIN (UNKNOWN WHAT KIND). PT ALSO HAS AFIB AND PACER AND IS ON COUMADIN. PT NOW STATES SHE FEELS LIKE SHE IS IN AFIB AND THERE IS A "HEAVY" FEELING OVER LEFT CHEST. PIV ESTABLISHED EN ROUTE BUT NO INTERVENTIONS PERFORMED. PT CONNECTED TO ALL MONITORS. VSS ON RA. NO NEEDS EXPRESSED. ROBERTO MASON TO BS FOR ASSESSMENT. ORDERS RECEIVED. LABS DRAWN. XR COMPLETE. EDT TO BS FOR EKG. AWAITING RESULTS.
[2020-01-19 08:48] LABS: BASOPHILS # (AUTO) 0.01 x10^3/uL (0-0.1); BASOPHILS % (AUTO) 0 % (0-1); EOSINOPHILS # (AUTO) 0.04 x10^3/uL (0-0.4); EOSINOPHILS % (AUTO) 1 % (1-7); LYMPHOCYTES # (AUTO) 0.72 x10^3/uL (1-3.4); LYMPHOCYTES % (AUTO) 18 % (22-44); MD NO; MEAN CORPUSCULAR HEMOGLOBIN 27.3 pg (27.0-34.8); MEAN CORPUSCULAR VOLUME 85.3 fL (80-100); MEAN PLATELET VOLUME 7.3 fL (7.4-10.4); MONOCYTES # (AUTO) 0.27 x10^3/uL (0.2-0.8); MONOCYTES % (AUTO) 7 % (2-9); NEUTROPHILS # (AUTO) 3.05 x10^3/uL (1.8-6.8); NEUTROPHILS % (AUTO) 75 % (42-75); PLATELET COUNT 189 x10^3/uL (130-400); RED BLOOD COUNT 4.09 x10^6/uL (3.82-5.3); RED CELL DISTRIBUTION WIDTH 15.6 % (9.6-15.2)
[2020-01-19 08:57] LABS: ALANINE AMINOTRANSFERASE 32 U/L (12-78); ALBUMIN 4.1 g/dL (3.4-5.0); ANION GAP 6 mmol/L (5-15); CALCIUM 8.9 mg/dL (8.5-10.1); CHLORIDE 109 mmol/L (98-107)
[2020-01-19 09:02] LABS: ALKALINE PHOSPHATASE 129 U/L (45-117); BILIRUBIN,TOTAL 0.9 mg/dL (0.2-1.0); TOTAL PROTEIN 7.8 g/dL (6.4-8.2); TROPONIN I < 0.015 ng/mL (0.000-0.045)
--- NOTE | 2020-01-19 09:14 | NUR ---
PT RESTING IN ROOM. VSS. NO NEEDS EXPRESSED. CALL LIGHT WITHIN REACH. AWAITING RESULTS.
[2020-01-19 09:53] LABS: INTERNATIONAL NORMALIZED RATIO 1.92 (0.93-1.1); PROTHROMBIN TIME 20.5 Seconds (9.6-11.5)
[2020-01-19 10:56] VITALS: BP 155/83
[2020-01-19] MEDS ORDERED: NITROGLYCERIN 0.4 MG/SPRAY SL PRN (12:00)
[2020-01-19] MEDS ORDERED: GLUCAGON 1 MG IM PRN (12:00)
[2020-01-19] MEDS ORDERED: ENALAPRILAT 1.25 MG/ML, 2ML IVPush PRN (12:00)
[2020-01-19] MEDS ORDERED: NITROGLYCERIN 0.4 MG BOTTLE (25 TABS) SL PRN (12:00)
[2020-01-19] MEDS ORDERED: POLYETHYLENE GLYCOL 17 GM PACKET PO PRN (12:00)
[2020-01-19] MEDS ORDERED: DEXTROSE 4 GM TAB.CHEW PO PRN (12:00)
[2020-01-19] MEDS ORDERED: DEXTROSE 50%, 50ML SYRINGE IVPush PRN (12:00)
[2020-01-19] MEDS ORDERED: ONDANSETRON ODT 4 MG PO PRN (12:00)
[2020-01-19] MEDS ORDERED: ACETAMINOPHEN 325 MG TABLET PO PRN (12:00)
[2020-01-19] MEDS ORDERED: LABETALOL 5MG/ML, 20ML IVPush PRN (12:00)
[2020-01-19] MEDS ORDERED: SOTA120T26 PO (12:29)
[2020-01-19] MEDS ORDERED: INSU100V8 SQ (12:29)
[2020-01-19] MEDS ORDERED: ATOR-2 PO (12:29)
[2020-01-19 13:00] VITALS: BP 128/77
[2020-01-19] MEDS ORDERED: INSULIN GLARGINE HUM REC ANLOG 5 UNIT SQ SCH (13:00)
[2020-01-19 13:01] VITALS: BP 145/85
[2020-01-19 13:02] VITALS: BP 153/81
[2020-01-19] MEDS: MECLIZINE 12.5 MG TABLET PO SCH (14:06)
[2020-01-19] MEDS: INSULIN REGULAR 100 UNITS/ML, 3ML VIAL SQ-INSULIN SCH ×2 (16:00→19:48)
[2020-01-19] MEDS: FUROSEMIDE 20 MG TABLET PO SCH (16:29)
[2020-01-19] MEDS: INSULIN LISPRO 100 UNITS/ML, PEN SQ-INSULIN SCH ×2 (16:30→21:00)
[2020-01-19] MEDS ORDERED: WARFARIN 7.5 MG TABLET PO-COUM ONE (18:00)
[2020-01-19 19:46] VITALS: BP 147/76
[2020-01-19] MEDS ORDERED: ATORVASTATIN 20 MG TABLET PO SCH (21:00)
[2020-01-19] MEDS ORDERED: DIGOXIN 0.25 MG TABLET PO SCH (21:00)
[2020-01-19] MEDS ORDERED: INSULIN GLARGINE 100 UNITS/ML, PEN SQ-INSULIN SCH ×2 (21:00)
[2020-01-19] MEDS: SOTALOL 120MG TABLET PO SCH (21:24)
[2020-01-19] MEDS: SODIUM CHLORIDE FLUSH 10ML SYR IVF SCH (21:25)
[2020-01-20 01:40] VITALS: BP 98/61
[2020-01-20 05:27] LABS: ALBUMIN 3.2 g/dL (3.4-5.0); ANION GAP 5 mmol/L (5-15); CALCIUM 8.2 mg/dL (8.5-10.1); CHLORIDE 111 mmol/L (98-107)
[2020-01-20 05:32] LABS: ALANINE AMINOTRANSFERASE 27 U/L (12-78); ALKALINE PHOSPHATASE 97 U/L (45-117); BILIRUBIN,TOTAL 0.5 mg/dL (0.2-1.0); TOTAL PROTEIN 6.4 g/dL (6.4-8.2)
[2020-01-20 05:49] LABS: MEAN CORPUSCULAR HEMOGLOBIN 27.9 pg (27.0-34.8); MEAN CORPUSCULAR HGB CONC 32.9 g/dL (32.4-35.8); MEAN CORPUSCULAR VOLUME 84.7 fL (80-100); MEAN PLATELET VOLUME 7.6 fL (7.4-10.4); PLATELET COUNT 144 x10^3/uL (130-400); RED BLOOD COUNT 3.41 x10^6/uL (3.82-5.3); RED CELL DISTRIBUTION WIDTH 16.2 % (9.6-15.2)
[2020-01-20] MEDS ORDERED: PANTOPRAZOLE 40MG TABLET PO SCH (06:00)
[2020-01-20] MEDS ORDERED: LEVOTHYROXINE 25 MCG TABLET PO SCH (06:00)
[2020-01-20 06:14] LABS: BASOPHILS # (AUTO) 0.01 x10^3/uL (0-0.1); BASOPHILS % (AUTO) 1 % (0-1); EOSINOPHILS # (AUTO) 0.05 x10^3/uL (0-0.4); EOSINOPHILS % (AUTO) 2 % (1-7); LYMPHOCYTES # (AUTO) 0.94 x10^3/uL (1-3.4); LYMPHOCYTES % (AUTO) 37 % (22-44); MD SCAN; MONOCYTES # (AUTO) 0.28 x10^3/uL (0.2-0.8); MONOCYTES % (AUTO) 11 % (2-9); NEUTROPHILS # (AUTO) 1.26 x10^3/uL (1.8-6.8); NEUTROPHILS % (AUTO) 49 % (42-75)
[2020-01-20 06:28] VITALS: BP 102/69
[2020-01-20] MEDS: INSULIN LISPRO 100 UNITS/ML, PEN SQ-INSULIN SCH ×2 (07:00→11:00)
[2020-01-20] MEDS: INSULIN REGULAR 100 UNITS/ML, 3ML VIAL SQ-INSULIN SCH ×2 (07:00→11:00)
[2020-01-20 07:50] LABS: INTERNATIONAL NORMALIZED RATIO 1.84 (0.93-1.1); PROTHROMBIN TIME 19.6 Seconds (9.6-11.5)
[2020-01-20] MEDS: SOTALOL 120MG TABLET PO SCH (07:53)
[2020-01-20] MEDS: FUROSEMIDE 20 MG TABLET PO SCH (07:54)
[2020-01-20] MEDS: MECLIZINE 12.5 MG TABLET PO SCH (07:55)
[2020-01-20] MEDS: SODIUM CHLORIDE FLUSH 10ML SYR IVF SCH (07:55)
[2020-01-20] MEDS ORDERED: POTASSIUM CHLORIDE 10 MEQ TABLET.ER PO SCH (08:00)
[2020-01-20] MEDS ORDERED: WARFARIN BIOPROSTHETIC VALVE PROTOCOL 2-3 XX SCH (09:00)
[2020-01-20] MEDS ORDERED: WARFARIN MECH. VALVE PROTOCOL 2.5 to 3.5 XX SCH (09:00)
[2020-01-20] MEDS ORDERED: SENNA/DOCUSATE TABLET PO SCH (09:00)
[2020-01-20 12:08] VITALS: BP 116/69
== END 2020-01-20 13:48 | disposition home health service (06) ==
LOC: ED 08:37 → EDIP 10:06 → INTOOBSV 10:06 → 4EST 10:47
PROVIDERS: ADMIT Family Medicine; ATTEND Family Medicine
DX: R42 Dizziness and giddiness (principal); I48.0 Paroxysmal atrial fibrillation; J44.9 Chronic obstructive pulmonary disease, unspecified; M19.90 Unspecified osteoarthritis, unspecified site; I50.9 Heart failure, unspecified; I11.0 Hypertensive heart disease with heart failure; M25.559 Pain in unspecified hip; I44.0 Atrioventricular block, first degree; E03.9 Hypothyroidism, unspecified; G89.29 Other chronic pain; E78.5 Hyperlipidemia, unspecified; E11.42 Type 2 diabetes mellitus with diabetic polyneuropathy; I87.8 Other specified disorders of veins; Z90.710 Acquired absence of both cervix and uterus; Z79.899 Other long term (current) drug therapy; Z95.0 Presence of cardiac pacemaker
CPT/HCPCS: 36415; 70450; 71045; 80053; 80162; 82140; 82962; 83880; 84443; 84484; 85025; 85610; 93005; 97166; 99285; G0378; J1815

== ENCOUNTER 2020-02-01 16:04 | Emergency (ER) | payer MEDICARE, MEDICAID ==
[~2020-02-01] VITALS: Ht 157.5 cm; Wt 64.0 kg
[~2020-02-01 16:04] MED LIST changes: +ATOR-2 PO; +INSU100V8 SQ; +[UNRECOGNIZED DRUG - REMARK]
--- NOTE | 2020-02-01 16:43 | NUR ---
PT BIB BY [facility]. SHE CALLED 911 "BECAUSE I WAS FEELING WEAK AND TIRED WELL HAVING A RADIATING HEADACHE". PT IS A0X4. DENIES RESPIRATORY SYMPTOMS. EKG HAS BEEN COMPLETED. PT IS CONNECTED TO PULSE OX. RECEIVED 500MG OF TYLENOL IN ROUTE
[2020-02-01] MEDS ORDERED: SODIUM CHLORIDE FLUSH 10ML SYR IVF ONE (17:00)
[2020-02-01 17:18] LABS: BASOPHILS # (AUTO) 0.01 x10^3/uL (0-0.1); BASOPHILS % (AUTO) 0 % (0-1); EOSINOPHILS # (AUTO) 0.07 x10^3/uL (0-0.4); EOSINOPHILS % (AUTO) 2 % (1-7); LYMPHOCYTES # (AUTO) 0.68 x10^3/uL (1-3.4); LYMPHOCYTES % (AUTO) 17 % (22-44); MD NO; MEAN CORPUSCULAR HEMOGLOBIN 27.6 pg (27.0-34.8); MEAN CORPUSCULAR HGB CONC 32.6 g/dL (32.4-35.8); MEAN CORPUSCULAR VOLUME 84.9 fL (80-100); MEAN PLATELET VOLUME 7.9 fL (7.4-10.4); MONOCYTES # (AUTO) 0.26 x10^3/uL (0.2-0.8); MONOCYTES % (AUTO) 6 % (2-9); NEUTROPHILS # (AUTO) 3.09 x10^3/uL (1.8-6.8); NEUTROPHILS % (AUTO) 75 % (42-75); PLATELET COUNT 182 x10^3/uL (130-400); RED BLOOD COUNT 4.12 x10^6/uL (3.82-5.3); RED CELL DISTRIBUTION WIDTH 15.5 % (9.6-15.2)
[2020-02-01 17:19] LABS: MICROSCOPIC NOT IND
[2020-02-01 17:21] LABS: CULTURE INDICATED? NO
--- NOTE | 2020-02-01 17:22 | NUR ---
STRAIGHT CATH DONE AND URINE SAMPLE WALKED TO LAB
[2020-02-01 17:24] LABS: ALANINE AMINOTRANSFERASE 39 U/L (12-78); ANION GAP 5 mmol/L (5-15); CHLORIDE 106 mmol/L (98-107)
[2020-02-01 17:26] LABS: INTERNATIONAL NORMALIZED RATIO 1.37 (0.93-1.1); PROTHROMBIN TIME 14.6 Seconds (9.6-11.5)
[2020-02-01 17:30] LABS: ALKALINE PHOSPHATASE 155 U/L (45-117); BILIRUBIN,TOTAL 0.4 mg/dL (0.2-1.0); CREATININE 0.93 mg/dL (0.55-1.02)
--- NOTE | 2020-02-01 18:05 | NUR ---
PT RESTING IN [facility]. RESPIRATIONS EVEN AND UNLABORED.
[2020-02-01 18:18] LABS: ACETONE, SERUM Negative (Negative)
--- NOTE | 2020-02-01 18:40 | NUR ---
PTRESTING IN [facility]. PT IS UP FOR RECHECK AT THIS TIME
[2020-02-01] MEDS ORDERED: ACETAMINOPHEN 500 MG TABLET ONE (18:53)
[2020-02-01 18:57] VITALS: BP 134/86
--- NOTE | 2020-02-01 18:57 | NUR ---
PT MEDICATED PER DEC. PT TO BE DC.
[2020-02-01] MEDS ORDERED: ACETAMINOPHEN 500 MG TABLET PO ONE (19:00)
== END 2020-02-01 19:41 | disposition home or self-care (01) ==
LOC: ED 16:14
DX: R55 Syncope and collapse (principal); I48.92 Unspecified atrial flutter; I10 Essential (primary) hypertension; E11.42 Type 2 diabetes mellitus with diabetic polyneuropathy; G89.29 Other chronic pain; J44.9 Chronic obstructive pulmonary disease, unspecified; I48.91 Unspecified atrial fibrillation; Z90.710 Acquired absence of both cervix and uterus; Z95.0 Presence of cardiac pacemaker; M19.90 Unspecified osteoarthritis, unspecified site
CPT/HCPCS: 36415; 71045; 80053; 81003; 82010; 82800; 83690; 83735; 83880; 84100; 85025; 85610; 93005; 99285

== ENCOUNTER 2020-04-28 11:43 | Emergency (ER) | payer MEDICARE, MEDICAID ==
[~2020-04-28] VITALS: Ht 157.5 cm; Wt 63.0 kg
[~2020-04-28 11:43] MED LIST changes: -WARF5TAB PO; +WARF5TAB2 PO
--- NOTE | 2020-04-28 13:01 | NUR ---
WHEELED TO ROOM FROM LOBBY IN WHEELCHAIR BY TAM BUCKLEY. NAD.
--- NOTE | 2020-04-28 13:17 | NUR ---
ERP IN TO SEE PT.
--- NOTE | 2020-04-28 13:27 | NUR ---
PT UNDRESSED FROM WAIST DOWN. EDEMA SLIGHT FROM CALF/MIDSHIN TO FEET. PURPLE/RED DISCOLORATION PRESENT SEEN WITH VENOUS STASIS. NO DRAINAGE OR LEAKING FLUID AT THIS TIME. US AT BS, CALL LIGHT WITHIN REACH.
[2020-04-28 13:43] LABS: BASOPHILS # (AUTO) 0.01 x10^3/uL (0-0.1); BASOPHILS % (AUTO) 0 % (0-1); EOSINOPHILS # (AUTO) 0.04 x10^3/uL (0-0.4); EOSINOPHILS % (AUTO) 1 % (1-7); LYMPHOCYTES # (AUTO) 1.03 x10^3/uL (1-3.4); LYMPHOCYTES % (AUTO) 21 % (22-44); MD NO; MEAN CORPUSCULAR HEMOGLOBIN 27.5 pg (27.0-34.8); MEAN CORPUSCULAR HGB CONC 32.6 g/dL (32.4-35.8); MEAN CORPUSCULAR VOLUME 84.2 fL (80-100); MEAN PLATELET VOLUME 7.6 fL (7.4-10.4); MONOCYTES # (AUTO) 0.38 x10^3/uL (0.2-0.8); MONOCYTES % (AUTO) 8 % (2-9); NEUTROPHILS # (AUTO) 3.38 x10^3/uL (1.8-6.8); NEUTROPHILS % (AUTO) 70 % (42-75); PLATELET COUNT 176 x10^3/uL (130-400); RED BLOOD COUNT 4.01 x10^6/uL (3.82-5.3); RED CELL DISTRIBUTION WIDTH 16.4 % (9.6-15.2)
[2020-04-28 13:51] LABS: ALBUMIN 3.8 g/dL (3.4-5.0); ANION GAP 4 mmol/L (5-15); CALCIUM 9.2 mg/dL (8.5-10.1); CHLORIDE 106 mmol/L (98-107); CREATININE 1.08 mg/dL (0.55-1.02)
--- NOTE | 2020-04-28 14:00 | NUR ---
ALL RESULTS BACK, PT FOR RECHECK.
[2020-04-28 15:52] VITALS: BP 130/79
== END 2020-04-28 15:54 | disposition home or self-care (01) ==
LOC: ED 15:18
DX: I11.0 Hypertensive heart disease with heart failure (principal); I50.9 Heart failure, unspecified; I87.2 Venous insufficiency (chronic) (peripheral); M79.89 Other specified soft tissue disorders; R60.9 Edema, unspecified; I48.91 Unspecified atrial fibrillation; E11.9 Type 2 diabetes mellitus without complications; Z95.0 Presence of cardiac pacemaker; Z90.710 Acquired absence of both cervix and uterus
CPT/HCPCS: 36415; 80048; 82040; 83880; 85025; 99284

== ENCOUNTER 2020-05-12 22:47 | Emergency (ER) | payer MEDICARE, MEDICAID ==
[~2020-05-12] VITALS: Ht 160 cm; Wt 65.0 kg
[2020-05-12] MEDS ORDERED: MECLIZINE CHEWABLE 25 MG TAB PO ONE (23:00)
[2020-05-12] MEDS ORDERED: MECLIZINE CHEWABLE 25 MG TAB ONE (23:05)
[2020-05-12 23:12] LABS: BASOPHILS # (AUTO) 0.01 x10^3/uL (0-0.1); BASOPHILS % (AUTO) 0 % (0-1); EOSINOPHILS # (AUTO) 0.07 x10^3/uL (0-0.4); EOSINOPHILS % (AUTO) 2 % (1-7); LYMPHOCYTES # (AUTO) 0.83 x10^3/uL (1-3.4); LYMPHOCYTES % (AUTO) 23 % (22-44); MD NO; MEAN CORPUSCULAR HEMOGLOBIN 27.5 pg (27.0-34.8); MEAN CORPUSCULAR HGB CONC 32.4 g/dL (32.4-35.8); MEAN CORPUSCULAR VOLUME 84.8 fL (80-100); MEAN PLATELET VOLUME 7.1 fL (7.4-10.4); MONOCYTES # (AUTO) 0.34 x10^3/uL (0.2-0.8); MONOCYTES % (AUTO) 10 % (2-9); NEUTROPHILS # (AUTO) 2.29 x10^3/uL (1.8-6.8); NEUTROPHILS % (AUTO) 65 % (42-75); PLATELET COUNT 191 x10^3/uL (130-400); RED BLOOD COUNT 3.75 x10^6/uL (3.82-5.3); RED CELL DISTRIBUTION WIDTH 16.8 % (9.6-15.2)
[2020-05-12 23:23] LABS: INTERNATIONAL NORMALIZED RATIO 3.91 (0.93-1.1)
[2020-05-12 23:24] LABS: ALANINE AMINOTRANSFERASE 39 U/L (12-78); ALBUMIN 3.4 g/dL (3.4-5.0); ANION GAP 6 mmol/L (5-15); CALCIUM 8.1 mg/dL (8.5-10.1); CHLORIDE 107 mmol/L (98-107); CREATININE 0.87 mg/dL (0.55-1.02)
[2020-05-12 23:27] LABS: ALKALINE PHOSPHATASE 141 U/L (45-117); BILIRUBIN,TOTAL 0.6 mg/dL (0.2-1.0); TOTAL PROTEIN 7.6 g/dL (6.4-8.2)
[2020-05-13 00:27] VITALS: BP 147/84
== END 2020-05-13 01:03 | disposition home or self-care (01) ==
LOC: ED 23:17
DX: R42 Dizziness and giddiness (principal); R51 Headache; R53.1 Weakness; R94.31 Abnormal electrocardiogram [ECG] [EKG]; I10 Essential (primary) hypertension; G89.29 Other chronic pain; J44.9 Chronic obstructive pulmonary disease, unspecified; I48.91 Unspecified atrial fibrillation; M19.90 Unspecified osteoarthritis, unspecified site; E11.65 Type 2 diabetes mellitus with hyperglycemia; Z95.0 Presence of cardiac pacemaker; Z96.41 Presence of insulin pump (external) (internal); Z90.710 Acquired absence of both cervix and uterus
CPT/HCPCS: 36415; 70450; 80053; 85025; 85610; 85730; 93005; 99285

== ENCOUNTER 2020-06-06 15:39 | Emergency (ER) | payer MEDICARE, MEDICAID ==
[~2020-06-06] VITALS: Ht 157.5 cm; Wt 72.0 kg
--- NOTE | 2020-06-06 15:50 | NUR ---
pt in hospital gown. PT PLACED ON CARDIAC AND VITALS MONITORS. EKG DONE. pt called EMS THIS AFTERNOON FOR INCREASING PAIN IN RIGHT LOWER LEG. PT STATED HER MOBILITY IS DECREASING DUE TO PAIN IN RIGHT LEG. PT USES WALKER DUE TO HER SCOOTER GETTING RAN OVER 5 MONTHS AGO. PT ALSO CONCERNED ABOUT RASH ON RIGHT LEG, LEFT FOREARM AND BOTTOM OF SCALP. PT THINKS IT'S CAUSED BY NEW MED [facility] TO TREAT HER DM. REPORT GIVEN TO CLAUDIO AT BEDSIDE.
[2020-06-06] MEDS ORDERED: ACETAMINOPHEN 500 MG TABLET ONE (15:56)
[2020-06-06] MEDS ORDERED: ACETAMINOPHEN 500 MG TABLET PO ONE (16:00)
[2020-06-06] MEDS ORDERED: SODIUM CHLORIDE FLUSH 10ML SYR IVF ONE (16:00)
[2020-06-06] MEDS ORDERED: GABAPENTIN (16:12)
[2020-06-06 16:27] LABS: BASOPHILS # (AUTO) 0.01 x10^3/uL (0-0.1); BASOPHILS % (AUTO) 0 % (0-1); EOSINOPHILS # (AUTO) 0.05 x10^3/uL (0-0.4); EOSINOPHILS % (AUTO) 2 % (1-7); LYMPHOCYTES # (AUTO) 0.65 x10^3/uL (1-3.4); LYMPHOCYTES % (AUTO) 20 % (22-44); MD NO; MEAN CORPUSCULAR HEMOGLOBIN 27.3 pg (27.0-34.8); MEAN CORPUSCULAR VOLUME 85.3 fL (80-100); MEAN PLATELET VOLUME 7.5 fL (7.4-10.4); MONOCYTES # (AUTO) 0.31 x10^3/uL (0.2-0.8); MONOCYTES % (AUTO) 10 % (2-9); NEUTROPHILS # (AUTO) 2.15 x10^3/uL (1.8-6.8); NEUTROPHILS % (AUTO) 68 % (42-75); PLATELET COUNT 182 x10^3/uL (130-400); RED BLOOD COUNT 4.09 x10^6/uL (3.82-5.3)
[2020-06-06 16:34] LABS: INTERNATIONAL NORMALIZED RATIO 3.29 (0.93-1.1); PROTHROMBIN TIME 34.3 Seconds (9.6-11.5)
[2020-06-06 16:37] LABS: ALANINE AMINOTRANSFERASE 31 U/L (12-78); ALBUMIN 4.1 g/dL (3.4-5.0); ANION GAP 8 mmol/L (5-15); CHLORIDE 107 mmol/L (98-107); CREATININE 0.93 mg/dL (0.55-1.02)
[2020-06-06 16:42] LABS: ALKALINE PHOSPHATASE 162 U/L (45-117); BILIRUBIN,TOTAL 0.8 mg/dL (0.2-1.0); TOTAL PROTEIN 8.5 g/dL (6.4-8.2)
[2020-06-06 16:49] VITALS: BP 140/83
--- NOTE | 2020-06-06 16:49 | NUR ---
PT RESTING IN [facility]. VSS. NAD. AWAITING US
== END 2020-06-06 18:44 | disposition home or self-care (01) ==
LOC: ED 17:23
DX: I83.12 Varicose veins of left lower extremity with inflammation (principal); I83.11 Varicose veins of right lower extremity with inflammation; I10 Essential (primary) hypertension; E11.9 Type 2 diabetes mellitus without complications; G89.29 Other chronic pain; J44.9 Chronic obstructive pulmonary disease, unspecified; I48.91 Unspecified atrial fibrillation; I44.7 Left bundle-branch block, unspecified; M19.90 Unspecified osteoarthritis, unspecified site; Z95.0 Presence of cardiac pacemaker; Z90.710 Acquired absence of both cervix and uterus
CPT/HCPCS: 36415; 71045; 80053; 83880; 85025; 85610; 93005; 93970; 99285

== ENCOUNTER 2020-07-12 09:49 | Outpatient (CLI) | payer MEDICARE, MEDICAID ==
[~2020-07-12 09:49] MED LIST changes: +GABAPENTIN
== END 2020-07-12 23:59 | disposition home or self-care (01) ==
LOC: WOUND 09:49
PROVIDERS: ATTEND Internal Medicine
DX: I87.331 Chronic venous hypertension (idiopathic) with ulcer and inflammation of right lower extremity (principal); E11.622 Type 2 diabetes mellitus with other skin ulcer; L97.311 Non-pressure chronic ulcer of right ankle limited to breakdown of skin; L97.811 Non-pressure chronic ulcer of other part of right lower leg limited to breakdown of skin; L97.212 Non-pressure chronic ulcer of right calf with fat layer exposed; J44.9 Chronic obstructive pulmonary disease, unspecified; G89.29 Other chronic pain; I48.91 Unspecified atrial fibrillation; M19.90 Unspecified osteoarthritis, unspecified site; K21.9 Gastro-esophageal reflux disease without esophagitis; E03.9 Hypothyroidism, unspecified; E78.5 Hyperlipidemia, unspecified; E11.40 Type 2 diabetes mellitus with diabetic neuropathy, unspecified; I13.0 Hypertensive heart and chronic kidney disease with heart failure and stage 1 through stage 4 chronic kidney disease, or unspecified chronic kidney disease; E11.22 Type 2 diabetes mellitus with diabetic chronic kidney disease; N18.1 Chronic kidney disease, stage 1; I50.9 Heart failure, unspecified; Z95.0 Presence of cardiac pacemaker; Z90.710 Acquired absence of both cervix and uterus; Z88.0 Allergy status to penicillin; Z79.01 Long term (current) use of anticoagulants; Z79.4 Long term (current) use of insulin
CPT/HCPCS: 97597; G0463